=== PATIENT | male | born 1960 | race Caucasian/White ===

== ENCOUNTER 2019-10-08 17:00 | Emergency (ER) | payer BC ==
[2019-10-08] MEDS ORDERED: FLU Vacc QS2019-20(6MOS+)/PF 60 MCG/0.5 ML SYRINGE IM ONE (18:00)
--- NOTE | 2019-10-08 19:54 | EDM.PDOC ---
ED HPI GENERAL MEDICAL PROBLEM - General Chief Complaint: Chest Pain Stated Complaint: RIB PAIN Time Seen by Provider: 10/08/19 17:27 Source of Information: Reports: Patient History Limitations: Reports: No Limitations - History of Present Illness INITIAL COMMENTS - FREE TEXT/NARRATIVE: The patient presents with right sided chest and back pain. He was out of town and golfing and he missed the ball and hurt his chest and upper back. That hurts with movement changes. He also has some pressure in his chest at times. He will get up and move around and it will get better after he burps. He has no shortness of breath. He has no nausea or vomiting. He has no heart problems. Onset: Gradual Duration: Week(s): Location: Reports: Chest, Back Quality: Reports: Sharp Severity: Moderate Improves with: Reports: Immobilization Worsens with: Reports: Movement Context: Reports: Trauma (Hurt it swinging a golf club) Associated Symptoms: Reports: Chest Pain. Denies: Cough, Fever/Chills, Headaches, Nausea/Vomiting, Shortness of Breath Right Middle Chest Pain Score (Numeric/FACES): 4 - Related Data Allergies Allergy/AdvReac Type Severity Reaction Status Date / Time No Known Allergies Allergy Verified 10/08/19 17:22 Home Meds: Home Meds Allopurinol [Zyloprim] 10/08/19 [History] Hydrocodone/Acetaminophen [Hydrocodon-Acetaminophen 5-325] 1 - 2 each PO Q6HR PRN #20 tablet 10/08/19 [Rx] Metoprolol Tartrate 10/08/19 [History] amLODIPine [Norvasc] 10/08/19 [History] Past Medical History Cardiovascular History: Reports: Hypertension Musculoskeletal History: Reports: Fracture, Gout - Past Surgical History GI Surgical History: Reports: Appendectomy Musculoskeletal Surgical History: Reports: Arthroscopic Knee Social & Family History - Family History Family Medical History: Noncontributory - Tobacco Use Smoking Status *Q: Never Smoker - Caffeine Use Caffeine Use: Reports: Coffee - Recreational Drug Use Recreational Drug Use: No ED ROS GENERAL - Review of Systems Review Of Systems: See Below Constitutional: Reports: No Symptoms HEENT: Reports: No Symptoms Respiratory: Reports: No Symptoms Cardiovascular: Reports: Chest Pain Endocrine: Reports: No Symptoms GI/Abdominal: Reports: No Symptoms : Reports: No Symptoms Musculoskeletal: Reports: No Symptoms ED EXAM, GENERAL - Physical Exam Exam: See Below Exam Limited By: No Limitations General Appearance: Alert, No Apparent Distress Ears: Normal External Exam Nose: Normal Inspection Head: Atraumatic, Normocephalic Neck: Normal Inspection Respiratory/Chest: No Respiratory Distress, Lungs Clear, Normal Breath Sounds Cardiovascular: Regular Rate, Rhythm, No Edema, No Murmur GI/Abdominal: Soft, Non-Tender, No Organomegaly, No Mass Back Exam: Other (Mild pain upon palpation to the upper right back) Extremities: Normal Inspection EKG INTERPRETATION EKG Date: 10/08/19 Time: 18:39 Rhythm: NSR Rate (Beats/Min): 60 [place]: Normal P-Wave: Present QRS: Normal ST-T: Normal QT: Normal Course - Vital Signs Last Recorded V/S: Last Vital Signs Temp 98.1 F 10/08/19 17:19 Pulse 69 10/08/19 17:19 Resp 14 10/08/19 17:19 BP 137/93 H 10/08/19 17:19 Pulse Ox 98 10/08/19 17:19 - Orders/Labs/Meds Orders: Active Orders 24 hr Category Date Time Status EKG Documentation Completion [RC] ASDIRECTED Care 10/08/19 18:36 Active Influenza Vaccine Charge [RC] .DISCHARGE Care 10/08/19 17:25 Active Ribs 2V w Chest Rt [CR] Stat Exams 10/08/19 18:01 Taken EKG 12 Lead [EK] Stat Ther 10/08/19 18:36 Ordered Labs: Laboratory Tests 10/08/19 10/08/19 10/08/19 Range/Units 18:48 18:48 18:48 WBC 6.10 (4.23-9.07) K/mm3 RBC 4.54 L (4.63-6.08) M/mm3 Hgb 14.5 (13.7-17.5) gm/dl Hct 42.3 (40.1-51.0) % MCV 93.2 H (79.0-92.2) fl MCH 31.9 (25.7-32.2) pg MCHC 34.3 (32.2-35.5) g/dl RDW Std Deviation 41.9 (35.1-43.9) fL Plt Count 211 (163-337) K/mm3 MPV 10.3 (9.4-12.3) fl Neut % (Auto) 43.2 (34.0-67.9) % Lymph % (Auto) 44.8 (21.8-53.1) % [place] % (Auto) 8.5 (5.3-12.2) % Eos % (Auto) 3.0 (0.8-7.0) Baso % (Auto) 0.3 (0.1-1.2) % Neut # (Auto) 2.64 (1.78-5.38) K/mm3 Lymph # (Auto) 2.73 (1.32-3.57) K/mm3 [place] # (Auto) 0.52 (0.30-0.82) K/mm3 Eos # (Auto) 0.18 (0.04-0.54) K/mm3 Baso # (Auto) 0.02 (0.01-0.08) K/mm3 D-Dimer, Quantitative < 0.19 L (0.19-0.50) mg/L Sodium 138 (136-145) mEq/L Potassium 4.3 (3.5-5.1) mEq/L Chloride 103 (98-107) mEq/L Carbon Dioxide 24 (21-32) mEq/L Anion Gap 15.3 H (5-15) BUN 19 H (7-18) mg/dL Creatinine 1.2 (0.7-1.3) mg/dL Est Cr Clr Drug Dosing 74.55 mL/min Estimated GFR (MDRD) > 60 (>60) mL/min BUN/Creatinine Ratio 15.8 (14-18) Glucose 227 H (74-106) mg/dL Calcium 9.2 (8.5-10.1) mg/dL Total Bilirubin 0.3 (0.2-1.0) mg/dL AST 20 (15-37) U/L ALT 50 (16-63) U/L Alkaline Phosphatase 64 (46-116) U/L Troponin I < 0.017 (0.00-0.056) ng/mL Total Protein 6.9 (6.4-8.2) g/dl Albumin 3.8 (3.4-5.0) g/dl Globulin 3.1 gm/dL Albumin/Globulin Ratio 1.2 (1-2) Meds: Medications Discontinued Medications Generic Name Dose Route Start Last Admin Trade Name Freq PRN Reason Stop Dose Admin Influenza Virus Vaccine 1 each 10/08/19 17:25 Pharmacy To Dose - Influenza Vaccine IM 10/08/19 17:26 ONETIME ONE Influenza Virus Vaccine 60 mcg 10/08/19 18:00 10/08/19 18:28 Fluzone Quad [id number] Syringe IM 10/08/19 18:01 60 mcg .ONCE ONE Administration - Re-Assessments/Exams Free Text/Narrative Re-Assessment/Exam: 10/08/19 19:52 I ordered an EKG, x-ray of his right ribs and labs. His rib x-ray shows no rib fracture or pneumothorax. His CBC and CMP look good. His troponin and D-dimer were negative. Departure - Departure Time of Disposition: 20:00 Disposition: Home, Self-Care 01 Condition: Good Clinical Impression: Atypical chest pain Strain, back Qualifiers: Encounter type: initial encounter Qualified Code(s): S39.012A - Strain of muscle, fascia and tendon of lower back, initial encounter Prescriptions: Hydrocodone/Acetaminophen [Hydrocodon-Acetaminophen 5-325] 1 - 2 each PO Q6HR PRN #20 tablet PRN Reason: Pain Referrals: PCP,None [Primary Care Provider] - Nancy Singh, [employer] [Nurse Practitioner] - 1 Week Additional Instructions: Take pepcid daily for 10 days. Ice your back for 15 minutes 3 times per day for 2 days. Take gas ex or something similar for the pressure you are having. Please return if you are worse. Sepsis Event Note - Evaluation Sepsis Screening Result: No Definite Risk - Focused Exam Vital Signs: Vital Signs Temp Pulse Resp BP Pulse Ox 10/08/19 17:19 98.1 F 69 14 137/93 H 98 Date Exam was Performed: 10/08/19 Time Exam was Performed: 19:48 - My Orders Last 24 Hours: My Active Orders 10/08/19 17:25 Influenza Vaccine Charge [RC] .DISCHARGE 10/08/19 18:01 Ribs 2V w Chest Rt [CR] Stat 10/08/19 18:36 EKG Documentation Completion [RC] ASDIRECTED EKG 12 Lead [EK] Stat - Assessment/Plan Last 24 Hours: My Active Orders 10/08/19 17:25 Influenza Vaccine Charge [RC] .DISCHARGE 10/08/19 18:01 Ribs 2V w Chest Rt [CR] Stat 10/08/19 18:36 EKG Documentation Completion [RC] ASDIRECTED EKG 12 Lead [EK] Stat
--- NOTE | 2019-10-10 13:49 | CR ---
Chest and right ribs: Frontal view of the chest was obtained as well as three views of the right ribs. Comparison: No previous rib study or chest x-ray. Heart size and mediastinum are normal. Lungs are clear with no acute parenchymal change. No discrete fracture or other right sided rib abnormality is appreciated. Impression: 1. No discrete right sided rib abnormality is appreciated. 2. Nothing acute is seen on accompanying chest x-ray. Diagnostic code #2 Study was dictated in [place] Standard Time
== END 2019-10-08 20:04 | disposition home or self-care (01) ==
LOC: JD.ED 17:00
DX: S39.012A Strain of muscle, fascia and tendon of lower back, initial encounter (principal); R07.89 Other chest pain; I10 Essential (primary) hypertension; M10.9 Gout, unspecified; Z79.899 Other long term (current) drug therapy; Z23 Encounter for immunization; X50.9XXA Other and unspecified overexertion or strenuous movements or postures, initial encounter; Y93.53 Activity, golf
CPT/HCPCS: 36415; 71101-26-RT; 71101-RT; 80053; 84484; 85025; 85379; 90686; 93005; 93010; 99284; 99285-25; G0008